=== PATIENT | male | born 1965 | race Caucasian/White ===

== ENCOUNTER 2020-02-10 18:18 | Emergency (ER) | payer OTHER, SELFPAY ==
[2020-02-10 18:27] VITALS: BP 143/80; PULSE 75; RESP 16; TEMP 36.8; O2SAT 98
--- NOTE | 2020-02-10 18:42 | ED.GENADUL_ITS ---
Discharge Plan Disposition Patient Disposition: HOME Condition: Improving Discharge Details Chief Complaint: Cellulitis Clinical Impression: Podagra Primary Care Provider: Angela,Local ED Provider: Anupam Christiansen Home Meds and New Rx's Prescriptions: New colchicine 0.6 mg tablet 0.6 mg PO DAILY Qty: 7 RF: 0 Continued rosuvastatin [Crestor] 10 mg Tablet 10 mg PO DAILY RF: 0 Discharge Instructions Instructions: Gout (ED) Additional Instructions: May use ibuprofen 600 to 800 mg every 8 hours, with food, as needed for pain. You may also use Tylenol as needed for pain. Elevate leg to reduce swelling. We began a double dose of colchicine this evening and then you will be given a single dose for the next 5 to 7 days time. Please follow-up with your regular doctor upon your return to [place] for recheck. Return to the ER for development of fever, progressive redness up the leg, or any other acute concerns. I have enclosed your laboratories that were obtained today for your records: WBC 8.15 RBC 4.58 Hgb 13.6 Hct 39.7 L MCV 86.7 MCH 29.7 MCHC 34.3 RDW 12.6 Plt Count 249 MPV 9.2 Immature Gran % 0.2 Neutrophils % 61.5 Lymphocytes % 27.4 Monocytes % 9.0 Eosinophils % 1.5 Basophils % 0.4 Absolute Neutrophils 5.02 Absolute Lymphocytes 2.23 Absolute Monocytes 0.73 Absolute Eosinophils 0.12 Absolute Basophils 0.03 Sodium 139 Potassium 3.8 Chloride 104 Carbon Dioxide 24.8 Anion Gap 10.2 BUN 20 H Creatinine 1.17 Estimated GFR/1.73 m2 >= 60.00 Glucose 108 H Uric Acid 6.7 Calcium 9.0 C-Reactive Protein 1.49 H Medical Decision Making 54-year-old male who is in the state of [place]. Reports having a negative COVID test at home and then drove to [place] to visit his mother. After arriving states he had a rich meal with alcohol and the next morning woke up with erythema and tenderness of his left great toe. No trauma. No fever. No swelling or pain of the calfs. He is well-appearing with unremarkable vital signs. The examination is consistent with bodega. He is not known to our system and screening laboratories including CBC, basic, CRP, uric acid obtained. CRP slightly elevated, uric acid 6.7. Consistent with gout. Patient says he does not want to take prednisone. Therefore discussed a course of colchicine double dose now and then single dose x5 days. He will follow-up with his primary care physician in [place] upon his return. Was given a copy of his laboratory analysis. Lab Data Lab results reviewed: Yes I reviewed the patient's lab results. Labs: Laboratory Results - last 24 hr 02/10/20 02/10/20 18:54 18:54 WBC 8.15 RBC 4.58 Hgb 13.6 Hct 39.7 L MCV 86.7 MCH 29.7 MCHC 34.3 RDW 12.6 Plt Count 249 MPV 9.2 Immature Gran % 0.2 Neutrophils % 61.5 Lymphocytes % 27.4 Monocytes % 9.0 Eosinophils % 1.5 Basophils % 0.4 Absolute Neutrophils 5.02 Absolute Lymphocytes 2.23 Absolute Monocytes 0.73 Absolute Eosinophils 0.12 Absolute Basophils 0.03 Sodium 139 Potassium 3.8 Chloride 104 Carbon Dioxide 24.8 Anion Gap 10.2 BUN 20 H Creatinine 1.17 Estimated GFR/1.73 m2 >= 60.00 Glucose 108 H Uric Acid 6.7 Calcium 9.0 C-Reactive Protein 1.49 H HPI General Mode of arrival: ambulatory . Date/Time Provider Initiated Documentation: 02/10/20 18:20 . Limitations to Documentation: no limitations . Information obtained by: patient . History of Present Illness 54 year old M p resents to the emergency department with the chief complaint of Left great toe erythema, described as moderate, Quality is described as dull, and is localized to the left and lower extremity. Patient reports no radiation. Patient started experiencing this day(s) and it has been constant. No relieving factors improve symptom(s), Movement worsens symptoms . Patient notes other (No leg swelling or erythema); denies chest pain and shortness of breath. Patient did receive the following treatments prior to arrival, none Related Data Home Medications Medication Instructions Recorded Confirmed colchicine 0.6 mg PO DAILY #7 tab 02/10/20 rosuvastatin [Crestor] 10 mg PO DAILY 02/10/20 02/10/20 Previous Rx's Medication Instructions Recorded colchicine 0.6 mg PO DAILY #7 tab 02/10/20 Allergies Allergy/AdvReac Type Severity Reaction Status Date / Time atorvastatin [From Lipitor] Allergy Unverified 02/10/20 18:32 General Stated Complaint: Cellulitis JOSE RAUL: 3 Review of Systems Narrative: Sick systems reviewed and otherwise negative [facility] Social History Smoking/Tobacco Use Status: Former Tobacco Use Substance use type: does not use Exam Narrative Exam Narrative: GEN: awake, alert, oriented 3. Pleasant, well groomed, interactive. HEAD: Normocephalic, atraumatic EXT: Full ROM, no edema, the left great toe base is erythematous, slightly swollen and tender to touch. Otherwise unremarkable exam. Neuro: Grossly normal neurologic exam, conversant, interactive. Psych: Speech fluent, thoughts congruent, affect normal Course Vital Signs Vital signs: Vital Signs Temperature 36.8 C 02/10/20 18:27 Pulse 75 02/10/20 18:27 Respiratory Rate 16 02/10/20 18:27 Blood Pressure 143/80 H 02/10/20 18:27 Pulse Oximetry 98 02/10/20 18:27 Temperature 36.8 C 02/10/20 18:27 Pulse 75 02/10/20 18:27 Respiratory Rate 16 02/10/20 18:27 Respiratory Effort Non-Labored 02/10/20 18:27 Blood Pressure 143/80 H 02/10/20 18:27 Pulse Oximetry 98 02/10/20 18:27 Oxygen Delivery Method Room Air 02/10/20 18:27 Oxygen Flow Rate 0 02/10/20 18:27 Pain Level 6 02/10/20 18:27
[2020-02-10 19:11] LABS: Abs Immature Grans 0.02 10^3/uL (0.0-0.06); Absolute Basophil Count 0.03 10^3/uL (0.0-0.2); Absolute Eosinophil Count 0.12 10^3/uL (0.0-0.7); Absolute Lymphocyte Count 2.23 10^3/uL (1.2-3.4); Absolute Monocyte Count 0.73 10^3/uL (0.1-0.8); Absolute Neutrophil Count 5.02 10^3/uL (1.2-6.7); Basophils % 0.4; Eosinophils % 1.5; HCT 39.7 % (40.0-50.0); HGB 13.6 g/dL (13.5-17.5); Immature Grans % 0.2; Lymphocytes % 27.4; MCH 29.7 pg (27.0-33.0); MCHC 34.3 % (32.0-36.0); MCV 86.7 fL (80-95); MPV 9.2 fL (8.0-11.0); Neutrophils % 61.5; Platelet Count 249 10^3/uL (130-400); RBC 4.58 10^6/uL (4.36-5.78); RDW 12.6 % (11.8-14.1); RDW-SD 39.8 fL; WBC 8.15 10^3/uL (4.4-10.8)
[2020-02-10 19:16] LABS: Anion Gap 10.2 mmol/L (3-11); BUN 20 mg/dL (7-18); C-Reactive Protein 1.49 mg/dL (0.0-0.3); CO2 24.8 mmol/L (21.0-32.0); CREATININE 1.17 mg/dL (0.70-1.30); Chloride 104 mmol/L (98-107); Glucose 108 mg/dL (74-106); Potassium 3.8 mmol/L (3.5-5.1); Sodium 139 mmol/L (136-145); Uric Acid 6.7 mg/dL (3.5-7.2)
[2020-02-10] MEDS: Colchicine 0.6 MG TAB PO (19:46)
== END 2020-02-10 19:40 | disposition home or self-care (01) ==
PROVIDERS: Emergency Provider Emergency Medicine
DX: M10.9 Gout, unspecified (principal)
CPT/HCPCS: 36415; 80048; 99283; 84550; 85025; 86140